=== PATIENT | female | born 1960 | race Caucasian/White ===

== ENCOUNTER → 2024-05-22 12:37 | Outpatient (REF) | payer OTHER, SELFPAY | LOC: HWWDC 12:37 | PROVIDERS: ATTENDING PHYSICIAN Obstetrics & Gynecology; FAMILY PHYSICIAN Internal Medicine | DX: Z12.31 Encounter for screening mammogram for malignant neoplasm of breast (principal) | CPT/HCPCS: 77063; 77067 ==

== ENCOUNTER → 2025-05-23 13:09 | Outpatient (REF) | payer OTHER, SELFPAY | LOC: HWWDC 13:09 | PROVIDERS: ATTENDING PHYSICIAN Obstetrics & Gynecology; FAMILY PHYSICIAN Internal Medicine | DX: Z12.31 Encounter for screening mammogram for malignant neoplasm of breast (principal) | CPT/HCPCS: 77063; 77067 ==